=== PATIENT | male | born 1995 | race Caucasian/White ===

== ENCOUNTER 2018-07-23 00:35 | Emergency (ER) | payer SELFPAY ==
[2018-07-23 00:36] VITALS: BP 143/96
--- NOTE | 2018-07-23 00:43 | ER Report ---
History and Physical Time Seen By MD: 00:36 HPI/ROS CHIEF COMPLAINT: Halfway clearance HISTORY OF PRESENT ILLNESS: This is a 23 year old male. He was brought to the ER by [employer] for half-way clearance. Intoxicated. He has some pain in shoulders and in abdomen, but denies any current illness, injury or medical problems. He has been drinking tonight, not quantified. Denies chest pain. Denies shortness of breath. Allergies: Coded Allergies: Penicillins (Verified Allergy, Unknown, 07/23/18) Sulfa (Sulfonamide Antibiotics) (Verified Allergy, Unknown, 07/23/18) Reviewed Nurses Notes: Yes Constitutional Vital Sign - Last 24 Hours 07/23/18 00:36 Temp 97.6 Pulse 107 Resp 16 B/P (MAP) 143/96 Pulse Ox 97 O2 Delivery Room Air Physical Exam General Appearance: The patient is alert, has no immediate need for airway protection, no acute distress, cooperative and polite although intoxicated. Eyes: Pupils equal and round, has some scleral injection. ENT: Normal oral mucosa. Moist mucous membranes. Tympanic membranes are normal. Neck: Neck is supple and non tender. Respiratory: Chest is non tender, lungs are clear to auscultation. Cardiac: regular rate and rhythm Gastrointestinal: Abdomen is soft and non tender Musculoskeletal: Extremities have full range of motion. Non tender. Skin: No rashes or lesions. DIFFERENTIAL DIAGNOSIS: After history and physical exam differential diagnosis was considered for patient with alcohol intoxication, half-way clearance, although complained of shoulder pain and abdominal pain not eliciting any on exam. Medical Decision Making ED Course/Re-evaluation ED Course No acute problems other than intoxication. Patient is cleared to be discharged with police to half-way. Decision to Disposition Date: July 23, 2018 Decision to Disposition Time: 00:43 Depart Departure Latest Vital Signs Vital Signs Date Time Temp Pulse Resp B/P (MAP) Pulse Ox O2 Delivery O2 Flow Rate FiO2 07/23/18 00:36 97.6 107 16 143/96 97 Room Air Impression: Primary Impression: Alcohol intoxication Condition: Improved Disposition: HOME OR SELF-CARE Patient Instructions: Alcohol Intoxication (ED) Problem Qualifiers Primary Impression: Alcohol intoxication Complication of substance-induced condition: uncomplicated Qualified Codes: F10.920 - Alcohol use, unspecified with intoxication, uncomplicated DARIUS SALAZAR MD July 23, 2018 00:43
== END 2018-07-23 00:53 ==
LOC: ER 00:39
DX: R10.9 Unspecified abdominal pain (principal); F10.920 Alcohol use, unspecified with intoxication, uncomplicated
CPT/HCPCS: 99281